=== PATIENT | female | born 1975 | race Caucasian/White ===

== ENCOUNTER 2016-12-27 20:31 | Emergency (ER) | payer OTHER ==
--- NOTE | ~2016-12-27 | EKG ---
PATIENT: HAYLEE GARCIA UNIT #: [id number] Ventricular Rate: 50 BPM Atrial Rate: 50 BPM P-R Interval: 128 ms QRS Duration: 74 ms Q-T Interval: 520 ms QTC Calculation(Bezet): 474 ms P Vale: 54 degrees Calculated R Vale: 66 degrees Calculated T Vale: 27 degrees Diagnosis Line: Sinus bradycardia Diagnosis Line: ST and T wave abnormality, consider anterior Diagnosis Line: ischemia Diagnosis Line: Prolonged QT Diagnosis Line: Abnormal ECG Diagnosis Line: When compared with ECG of 20-OCT-2014 12:28, Diagnosis Line: Nonspecific T wave abnormality, improved in Diagnosis Line: Inferior leads Diagnosis Line: T wave inversion no longer evident in Lateral Diagnosis Line: leads Diagnosis Line: Confirmed by RICO DAVILA MD ([id number]) on 12/29/2016 Diagnosis Line: 2:50:04 PM INTERPRETING MD: LOLA LITTLEJOHN
--- NOTE | ~2016-12-27 | CT71 ---
[facility] A Service of [facility] RADIOLOGY TEXT RESULTS PATIENT: HAYLEE GARCIA LOCATION: [facility] : 79 UNIT #: [id number] AGE: [address]: Gerson Aly MD SEX: F ORDER DR: [id number] [id number] [facility]. [place], [place] [address] [id number] MR#: [id number] Acc #: [id number] NAME: HAYLEE GARCIA : 1975 SEX: F STUDY DATE/TIME: 12/27/2016 20:36 UNIT: [facility] ROOM: STUDY DESCRIPTION: CT Head Wo Contrast Attending Physician: Gerson Aly M.D. Ordering Physician: Gerson Aly M.D. Primary Care Physician: Susan Ware M.D. MEDICAL IMAGING REPORT This report is preliminary unless electronic signature is present EXAM CT head without HISTORY Confusion for 2 days. Lethargy and weakness. History of drug abuse and meningitis. TECHNIQUE This CT exam was performed with one or more of the following radiation dose reduction techniques: automatic exposure control, adjustment of mA and/or kV according to patient size, and iterative reconstruction. FINDINGS Routine noncontrast head CT is reviewed. There is no prior study of the brain. There is no displaced calvarial fracture. The patient has had mastoidectomy on the right and there is some fluid or inflammatory change in the relatively under-pneumatized left sided mastoid air cells. Paranasal sinuses where visualized are clear. Streak artifact from earrings not removed. This particularly limits assessment of the posterior fossa. Allowing for this, there is no evidence for acute intracranial hemorrhage, extraaxial fluid collection or intracranial mass effect. Basilar cisterns are patent. Ventricles are normal in size and configuration and davis-white junction is relatively well maintained. If there is clinical concern for acute CVA, follow-up imaging would be indicated. Preferably follow-up imaging would be performed with piercings removed. IMPRESSION Allowing for artifact from piercings no acute intracranial abnormality is appreciated. [facility] A Service of [facility] RADIOLOGY TEXT RESULTS PATIENT: HAYLEE GARCIA LOCATION: [facility] #: [id number] : [birth year] UNIT #: [id number] AGE: [address]: Gerson Aly MD SEX: F ORDER DR: Dictated by... Dolly Guerrero M.D. THIS IS AN ELECTRONICALLY VERIFIED REPORT Dolly Guerrero M.D. at 12/28/2016 8:51 PM Jessica TD: 12/28/2016 10:41 JOB #: [id number] MEDICAL IMAGING REPORT Page 1 of 1 COPY
[2016-12-27 18:02] LABS: BASOPHIL# 0.1 X10e3 (0-0.3); EOSINOPHIL% 0.8 % (0.0-7.0); HEMATOCRIT 43.5 % (35.0-45.0); HEMOGLOBIN 14.5 gm/dL (12.0-16.0); LYMPHOCYTE# 1.5 X10e3 (1.0-3.5); LYMPHOCYTE% 31.2 % (17.0-45.0); MEAN CORPUSCULAR HGB CONC 33.4 g/dL (30-36); MEAN PLATELET VOLUME 6.9 FL (6.5-11.5); MONOCYTE# 0.4 X10e3 (0-1.0); MONOCYTE% 8.4 % (3.0-12.0); NEUTROPHIL# 2.8 X10e3 (1.5-7.1); NEUTROPHIL% 57.6 % (40-75); PLATELET COUNT 368 X10e3 (140-420); RED BLOOD COUNT 4.68 X10e (3.90-5.30); RED CELL DISTRIBUTION WIDTH 14.2 % (11.0-15.5); WHITE BLOOD COUNT 4.9 X10e3 (4.0-10.5)
[2016-12-27 18:05] LABS: DIFF IND NO
[2016-12-27 18:17] LABS: ALBUMIN SERUM 4.5 g/dL (3.5-5.0); BILIRUBIN, DIRECT 0.1 mg/dL (0.0-0.2); BILIRUBIN,INDIRECT 0.8 mg/dL (0.0-0.9); BILIRUBIN,TOTAL 0.9 mg/dL (0.2-2.0); BUN/CREATININE RATIO 17.27; CREATININE SERUM 1.1 mg/dL (0.6-1.4); GLOM FILT RATE Estimated 63.2 mL/min (>60); POTASSIUM 3.8 mmol/L (3.5-5.1); PROTEIN TOTAL SERUM 7.9 g/dL (6.0-8.3)
[2016-12-27 18:20] LABS: INR 1.1; PARTIAL THROMBOPLASTIN TIME 27.7 SECONDS (23.5-31.3); PROTHROMBIN TIME (PATIENT) 11.5 SECONDS (9.6-11.5)
[2016-12-27 20:27] LABS: URINE SOURCE CLEAN CATCH
[~2016-12-27 20:31] MED LIST: ALPRAZOLAM PO; AMOXICILLI250 MG/5 M PO; BACTRIM DS TABL1 TA1 PO; CHANTIX1 MG PO; KEFLEX PO; KETOPROFEN PO; LEVOTHROID25 MCG PO; METHADONE PO; NEURONTIN PO; NEURONTIN600 MG PO; PERCOCET 10/3251 TAB; PERCOCET PO; TOPAMAX PO; ULTRAM PO; ZOLOFT50 MG PO
[2016-12-27 20:42] LABS: URINE APPEARANCE CLEAR; URINE BILIRUBIN NEG (NEG); URINE BLOOD 1+ (NEG); URINE COLOR YELLOW; URINE GLUCOSE NEG (NEG); URINE KETONE TRACE (NEG); URINE LEUKOCYTE ESTERASE 2+ (NEG); URINE NITRATE NEG (NEG); URINE PH 5.5 (5-8); URINE PROTEIN NEG (NEG); URINE SPECIFIC GRAVITY 1.013 (1.003-1.035); URINE UROBILINOGEN 0.2 MG/DL (NEG)
[2016-12-27 20:44] LABS: CULTURE INDICATED? YES; U HYALINE CASTS AUWI 0-2 /[LPF]; URINE BACTERIA AUWI NEG (NEGATIVE); URINE SQUAMOUS EPITHELIAL CELL OCC /[HPF]
[2016-12-27 20:52] LABS: AMPHETAMINE NEG (NEG); BARBITURATES NEG (NEG); BENZODIAZEPINES POS (NEG); COCAINE NEG (NEG); MARIJUANA POS (NEG); OPIATES NEG (NEG); TRICYCLIC ANTIDEPRESSANTS NEG (NEG); U METHADONE POS (NEG)
== END 2016-12-27 22:27 | disposition home or self-care (01) ==
LOC: CED 20:31
PROVIDERS: Student in an Organized Health Care Education/Training Program
DX: R41.0 Disorientation, unspecified (principal); R42 Dizziness and giddiness; F32.9 Major depressive disorder, single episode, unspecified; F17.200 Nicotine dependence, unspecified, uncomplicated; Z88.8 Allergy status to other drugs, medicaments and biological substances
CPT/HCPCS: 36415; 70450; 80048; 80076; 80307; 81003; 82947; 84703; 85025; 85610; 85730; 87086; 93005; 96360; 99284